=== PATIENT | male | born 1950 | race Two or more races ===

== ENCOUNTER 2017-12-04 19:34 | Emergency (ER) | payer OTHER ==
[~2017-12-04] VITALS: Ht 160 cm; Wt 70.3 kg
[2017-12-04] MEDS ORDERED: ALTACE10 MG PO (19:57)
[2017-12-04] MEDS ORDERED: SINGULAIR10 MG PO (19:57)
[2017-12-04] MEDS ORDERED: SIMVASTATIN10 MG PO (19:58)
[2017-12-04] MEDS ORDERED: AMLODIPINE BES2.5 MG PO (19:58)
== END 2017-12-04 23:52 | disposition home or self-care (01) ==
LOC: ER 19:34
DX: S90.121A Contusion of right lesser toe(s) without damage to nail, initial encounter (principal); W22.8XXA Striking against or struck by other objects, initial encounter; Y93.89 Activity, other specified; Y92.098 Other place in other non-institutional residence as the place of occurrence of the external cause; Y99.8 Other external cause status